=== PATIENT | male | born 1965 | race Caucasian/White ===

== ENCOUNTER → 2021-01-31 | Outpatient (CLI) | payer MEDICARE, OTHER ==
[~2021-01-31] MED LIST: ENBREL50 MG/1 M1 SQ; FLOMAX0.4 MG PO; LINZESS290 MCG PO; LIPITOR10 MG PO; LISINOPRIL2.5 MG PO; PLAVIX75 MG PO; QUETIAPINE FUM100 MG PO; SUBOXONE 8 MG-1 EACH SL; VENLAFAXINE HCL75 MG PO
== END ==
LOC: KOH-I 11:30
DX: F17.210 Nicotine dependence, cigarettes, uncomplicated (principal); R91.8 Other nonspecific abnormal finding of lung field
CPT/HCPCS: 71271

== ENCOUNTER → 2021-06-16 | Outpatient (CLI) | payer MEDICARE, OTHER | LOC: KOH-I 14:22 | DX: M54.50 Low back pain, unspecified (principal); G89.29 Other chronic pain; M47.814 Spondylosis without myelopathy or radiculopathy, thoracic region; M47.816 Spondylosis without myelopathy or radiculopathy, lumbar region | CPT/HCPCS: 72070; 72100 ==